=== PATIENT | female | born 1980 | race Caucasian/White ===

== ENCOUNTER 2016-09-21 21:37 | Inpatient (IN) | payer BC ==
[2016-09-21] MEDS ORDERED: EPSOM SALT 454 GM TP PRN (21:51)
[2016-09-21] MEDS ORDERED: MINERAL OIL 60 ML OIL TP PRN (21:51)
[2016-09-21] MEDS ORDERED: TERBUTALINE SULFATE 1 MG/ML VIAL IV PRN (21:51)
[2016-09-21] MEDS ORDERED: LIDOCAINE 1% 30 ML SDV SC PRN (21:51)
[2016-09-21] MEDS ORDERED: OXYTOCIN/RINGERS LACTATE 1,000 ML IV PRN (21:51)
[2016-09-21] MEDS ORDERED: LR 1,000 ML IV PRN (21:51)
[2016-09-21] MEDS ORDERED: AMMONIA AROMATIC 1 EACH AMP IH ONE (22:04)
[2016-09-21] MEDS ORDERED: MISOPROSTOL 200 MCG TAB ONE (22:05)
[2016-09-21] MEDS ORDERED: TERBUTALINE SULFATE 1 MG/ML VIAL ONE (22:05)
[2016-09-21] MEDS ORDERED: LIDOCAINE 1% 30 ML SDV ONE (22:06)
[2016-09-21] MEDS ORDERED: OXYTOCIN 10 UNIT/ML VIAL ONE (22:06)
[2016-09-21 22:14] LABS: % IMMATURE GRANULYOCYTES 0.4 % (0.0-1.1); ABSOLUTE IMMATURE GRANULOCYTES 0.05 10^3/uL (0.00-0.10); ADD DIFF? NO; ADD MORPH? NO; ADD SCAN? NO; ATYPICAL LYMPHOCYTE FLAG 0 (0-99); FRAGMENT RBC FLAG 0 (0-99); HEMATOCRIT 36.7 % (38.0-47.0); HEMOGLOBIN 12.8 g/dL (12.6-16.3); LEFT SHIFT FLG 0 (0-99); LIPEMIA HEMOLYSIS FLAG 90 (0-99); MEAN CELL HEMOGLOBIN 30.8 pg (27.9-34.1); MEAN CELL HEMOGLOBIN CONCENTR. 34.9 g/dL (32.4-36.7); MEAN CELL VOLUME 88.4 fL (81.5-99.8); MEAN PLATELET VOLUME 10.1 fL (8.7-11.7); PLATELET CLUMPS FLAG 0 (0-99); PLATELET COUNT 209 10^3/uL (150-400); RED BLOOD CELL COUNT 4.15 10^6/uL (4.18-5.33); RED CELL DISTRIBUTION WIDTH 12.6 % (11.5-15.2)
--- NOTE | 2016-09-21 23:07 | OBPROG ---
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 defer exam until several hours after pitocin begun 09/21/16 23:04 09/21/16 23:06 Subjective: doing well. denies pain at this time. Continuing to leak clear fluid. Cephalic by leopolds Objective: 09/21/16 21:50 Patient ABO/Rh A POSITIVE 09/21/16 21:50 FHR Pattern Variability: Moderate FHR Category: 1 Membranes: SROM Amniotic Fluid Color: Clear ICD10 Worksheet Patient Problems: Problems Problem Status Diagnosed Gestational diabetes mellitus, class A1 Acute Normal spontaneous vaginal delivery Acute
[2016-09-21] MEDS ORDERED: OXYTOCIN/RINGERS LACTATE 500 ML IV SCH (23:30)
--- NOTE | 2016-09-21 23:41 | GHP ---
[f rep st] HISTORY AND PHYSICAL DATE OF ADMISSION: 09/21/2016 HISTORY OF PRESENT ILLNESS: The patient is a 36-year-old, 5, para 1, AB 3, L1, who comes into Labor and Delivery with complaint of rupture of membranes at 2 p.m. on 09/21/2016. States feeling positive movement. States leaking clear fluid routinely in small amounts since 2 p.m. on 2016. At this time, unable to verify. Denies bleeding. Denies regular contractions. PAST MEDICAL HISTORY: The patient has a history of migraines, history of anxiety, infrequent yeast infections, frequent UTIs until 20 years old when her urethra was dilated, history of pyelonephritis in December 2011. Gynecological history of 3 previous SABs. PAST SURGERY HISTORY: History of wisdom tooth extraction. 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 History of previous anemia, not blood transfusions. ALLERGIES: Cipro, has an anaphylactic reaction. FAMILY HISTORY: Noncontributory. GYNECOLOGICAL HISTORY: Previous use of OCPs. Previous abnormal Pap smears with a colpo that was negative. History of CCRM consult. With this , patient conceived with acupuncture and herbs. HISTORY: Previous history of previous SABs x3. Previous vaginal delivery in April 2014 at 39-4/7 weeks at 7 pounds 3 ounces, 30 hours of labor with a spontaneous vaginal delivery, epidural and gestational diabetes. PHYSICAL EXAMINATION: GENERAL: Patient is awake, alert, oriented x3. LUNGS: Clear bilaterally. ABDOMEN: Bowel sounds are positive in all 4 quadrants. On palpation to the abdomen, baby is cephalic by Dat's. Contractions are irregular. CAT I TRACING. Abdomen is soft. LAB WORK: The patient is A positive, antibody negative. RPR is nonreactive. Rubella is immune. Hepatitis is negative. HIV is negative. Pap was within normal limits. Gonorrhea and chlamydia are negative. AFP was negative. Verifi was negative, and 1-hour GTT was within normal limits. GBS is negative. PLAN OF CARE: 1. Twelve hours to encourage contractions. 2. GBS negative. 3. Pitocin per protocol after 2 A.M. with patient and family's agreement in plan of care. 4. Consult Dr. Anna Wilder as needed for plan of care and difficulties. /[id number]/MODL MTDD
--- NOTE | 2016-09-22 04:26 | OBPROG ---
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 Coping well with the contractions Objective: 09/21/16 21:50 Patient ABO/Rh A POSITIVE 09/21/16 21:50 - SVE Dilation (cm): 4 Effacement (%): 80 Station: -1 Current Contraction Pattern: Regular FHR (bpm): 135 FHR Pattern Variability: Moderate FHR Category: 1 Membranes: AROM, SROM Amniotic Fluid Color: Clear ICD10 Worksheet Patient Problems: Problems Problem Status Diagnosed Gestational diabetes mellitus, class A1 Acute Normal spontaneous vaginal delivery Acute
--- NOTE | 2016-09-22 06:52 | OBPROG ---
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 Coping well with the pain Objective: 09/21/16 21:50 Patient ABO/Rh A POSITIVE 09/21/16 21:50 - SVE Dilation (cm): 5 Effacement (%): 80 Station: -1 Current Contraction Pattern: Regular FHR (bpm): 135 FHR Pattern Variability: Moderate FHR Category: 1 Membranes: SROM Amniotic Fluid Color: Clear ICD10 Worksheet Patient Problems: Problems Problem Status Diagnosed Gestational diabetes mellitus, class A1 Acute Normal spontaneous vaginal delivery Acute
--- NOTE | 2016-09-22 10:53 | OBPROG ---
OBG Progress Note Assessment/Plan: Assessment: IUP at 39+wks prodromal labor AROM of forebag GBS- Plan: Active change now 09/22/16 10:50 Subjective: Pt has been walking - tired - not really feeling dramatic pain with ctxns but tired from not sleeping due to them. Has had bloody show. small leaks. GFM. Last check at about 6a was 5cm, would like another check Objective: 09/21/16 21:50 Patient ABO/Rh A POSITIVE 09/21/16 21:50 - SVE Dilation (cm): 6 Effacement (%): 90 Station: 0 Current Contraction Pattern: Regular (on 20 mu/min pit, q 2-3 min ctxns) FHR (bpm): 130 FHR Pattern Variability: Moderate FHR Category: 2 Membranes: AROM (of forebag at approx 10:20) Amniotic Fluid Color: Blood Tinged Uterine Tone: Firm ICD10 Worksheet Patient Problems: Problems Problem Status Diagnosed Normal labor Acute
[2016-09-22] MEDS ORDERED: HYDROCODONE/APAP 5/325 TAB PO PRN (11:59)
[2016-09-22] MEDS ORDERED: ACETAMINOPHEN 325 MG TAB PO PRN (11:59)
--- NOTE | 2016-09-22 12:14 | OBPROC ---
- Labor and Delivery Onset of Contractions Date: 09/22/16 Onset of Contractions Time: 10:20 Onset of Contractions Type: Augmented Rupture of Membranes Date: 09/21/16 (AROM of forebag 09/22 at 10:20) Rupture of Membranes Time: 14:00 Rupture of Membranes Type: Spontaneous Amniotic Fluid Color: Blood Tinged Dilation Complete Time: 10:58 Delivery Type: Spontaneous Placenta Delivery Date: 09/22/16 Placenta Delivery Time: 11:26 Episiotomy/Laceration: 2nd Degree, Midline, Perineal Repair: 2-0, 3-0, Vicryl EBL: 350 Complications: Nuchal Cord (x1 loose and reduced) - Medications Labor Augmentation/Induction Meds Used: Pitocin Labor Augmentation/Induction Indication: Other (Specify) (SROM with no active labor after 12 hours) Anesthesia: Local (Specify) (1%lidocaine), Other (Specify) - Info A Delivery Date: 09/22/16 Delivery Time: 11:15 (Stefano) Sex of Infant: Male Score (1 Min): 9 Score (5 Min): 9
[2016-09-22] MEDS: IBUPROFEN 600 MG TAB PO PRN ×2 (12:17→20:20)
[2016-09-23] MEDS: IBUPROFEN 600 MG TAB PO PRN ×3 (03:15→20:00)
--- NOTE | 2016-09-23 07:18 | SOAPPROG ---
SOAP Progress Note Assessment/Plan: Assessment: ff@u scant rubra lochia perineum approximated minimal swelling pain well managed well Plan:pp day 1 expectant management of labor 09/21/16 23:04 09/21/16 23:06 09/22/16 04:23 09/22/16 06:49 09/23/16 07:15 Objective: Vital Signs Temp Pulse Resp BP Pulse Ox 36.8 C 83 18 99/62 L 09/22/16 21:04 09/22/16 21:04 09/22/16 21:04 09/22/16 21:04 Laboratory Results 09/21/16 21:50 09/22/16 09/23/16 09/24/16 05:59 05:59 05:59 Output Total 350 Balance -350 Physical Exam - Physical Exam General Appearance: WD/WN, alert, no apparent distress Abdomen: other (ff@u) Pelvic Exam: vaginal bleeding (scant rubra lochia) Skin: normal color, warm/dry Extremities: normal range of motion, Guerda's sign (negative bilaterally homens sign negative bilaterally) Neuro/Psych: no motor/sensory deficits, alert, normal mood/affect, oriented x 3 (dtrs1+ bilaterally no clonus) ICD10 Worksheet Patient Problems: Problems Problem Status Diagnosed (spontaneous vaginal delivery) Acute
[2016-09-23] MEDS: IRON POLYSAC/IRON HEME 28 MG TAB PO SCH (11:51)
[2016-09-23] MEDS: DOCUSATE SODIUM 100 MG CAP PO PRN ×2 (11:51→19:59)
[2016-09-23 20:37] VITALS: O2SAT 96
[2016-09-24] MEDS: IBUPROFEN 600 MG TAB PO PRN (07:44)
[2016-09-24] MEDS: DOCUSATE SODIUM 100 MG CAP PO PRN (07:44)
[2016-09-24] MEDS: IRON POLYSAC/IRON HEME 28 MG TAB PO SCH (07:44)
[2016-09-24 08:07] VITALS: BP 105/66; PULSE 79; RESP 18; TEMP 97.7
--- NOTE | 2016-09-24 08:51 | SOAPPROG ---
SOAP Progress Note Assessment/Plan: Assessment: PPD 2 s/p Plan: D/C home 09/22/16 10:50 09/24/16 08:49 Subjective: Pt doing well. Tired. Working on BF. Bottom sore but ibu covering. Mod cramps. urinating fine. bld is controlled Objective: Vital Signs Temp Pulse Resp BP Pulse Ox 36.5 C 79 18 105/66 96 09/24/16 08:02 09/24/16 08:02 09/24/16 08:02 09/24/16 08:02 09/24/16 08:02 Laboratory Results 09/21/16 21:50 09/23/16 09/24/16 09/25/16 05:59 05:59 05:59 Output Total 350 Balance -350 Physical Exam - Physical Exam General Appearance: WD/WN Abdomen: non-tender, soft, other (FF at umb -2) Pelvic Exam: vaginal bleeding (normal lochia) Extremities: non-tender, pedal edema (minimal) Neuro/Psych: normal mood/affect ICD10 Worksheet Patient Problems: Problems Problem Status Diagnosed (spontaneous vaginal delivery) Acute
== END 2016-09-24 11:40 | disposition home or self-care (01) | DRG 775 ==
LOC: FLD 21:37 → FOB 09-23 12:35
PROVIDERS: ADMIT Advanced Practice Midwife; ATTEND Advanced Practice Midwife
PROC: 10E0XZZ Delivery of Products of Conception, External Approach (ICD-10-PCS; principal; 2016-09-22)
PROC: 10907ZC Drainage of Amniotic Fluid, Therapeutic from Products of Conception, Via Natural or Artificial Opening (ICD-10-PCS; principal; 2016-09-22)
PROC: 0KQM0ZZ Repair Perineum Muscle, Open Approach (ICD-10-PCS; principal; 2016-09-22)
DX: O69.82X0 Labor and delivery complicated by other cord entanglement, without compression, not applicable or unspecified (principal); Z37.0 Single live birth; O70.1 Second degree perineal laceration during delivery; Z3A.39 39 weeks gestation of pregnancy; O09.523 Supervision of elderly multigravida, third trimester
CPT/HCPCS: J2590; J3105

== ENCOUNTER → 2017-03-05 | Outpatient (CLI) | payer BC | LOC: FIMAGING 12:48 | PROVIDERS: ATTEND Family Medicine | DX: R10.31 Right lower quadrant pain (principal); R10.2 Pelvic and perineal pain ==